=== PATIENT | male | born 1960 | race Caucasian/White ===

== ENCOUNTER → 2017-03-28 | Outpatient (CLI) | payer BC | LOC: RAD 07:53 | PROVIDERS: ATTEND Internal Medicine Gastroenterology | DX: D50.9 Iron deficiency anemia, unspecified (principal) | CPT/HCPCS: 74250 ==

== ENCOUNTER 2017-04-29 19:52 | Emergency (ER) | payer BC ==
--- NOTE | 2017-04-29 20:42 | ER Document Report ---
Doctor's Note Notes: 04/29/17 20:41 pt. with inability to urinate for the past 8-9 hrs. This has not happened before to him.
[2017-04-29 21:53] LABS: APPEARANCE,URINE CLEAR; BILIRUBIN,URINE NEGATIVE (NEGATIVE); GLUCOSE, URINE NEGATIVE (NEGATIVE); KETONES,URINE NEGATIVE (NEGATIVE); LEUKOCYTE ESTERASE,URINE NEGATIVE (NEGATIVE); NITRITE,URINE NEGATIVE (NEGATIVE); PROTEIN,URINE NEGATIVE (NEGATIVE); URINE SPECIFIC GRAVITY 1.008; UROBILINOGEN,URINE NEGATIVE mg/dL (<2.0)
--- NOTE | 2017-04-29 22:11 | ER Document Report ---
ED General - General Chief Complaint: Urinary Problem Stated Complaint: URINARY PROBLEM Time Seen by Provider: 04/29/17 20:39 Mode of Arrival: Ambulatory Information source: Patient, Relative Notes: 57-year-old male history of enlarged prostate who was on Flomax daily presents with complaints of difficulty urinating. Patient notes that he stopped his Flomax 3 days ago, they was having difficulty urinating. he has not urinated since noon TRAVEL OUTSIDE OF THE [place] IN LAST 30 DAYS: No - HPI Onset: This afternoon Onset/Duration: Sudden Quality of pain: Pressure Severity: Moderate Pain Level: 2 Associated symptoms: Other Exacerbated by: Denies Relieved by: Denies Similar symptoms previously: No Recently seen / treated by doctor: No - Related Data Allergies/Adverse Reactions: No Known Drug Allergies Allergy (Mild, Verified 10/24/13 08:31) Past Medical History - Social History Smoking Status: Former Smoker Cigarette use (# per day): No Chew tobacco use (# tins/day): No Smoking Education Provided: No Family History: Reviewed & Not Pertinent Patient has suicidal ideation: No Patient has homicidal ideation: No Pulmonary Medical History: Reports: Hx COPD Renal/ Medical History: Denies: Hx Peritoneal Dialysis - Immunizations Hx Diphtheria, Pertussis, Tetanus Vaccination: No Review of Systems - Review of Systems Notes: REVIEW OF SYSTEMS: CONSTITUTIONAL : Denies fever, chills, or sweats. Denies recent illness. EENT: Denies eye, ear, throat, or mouth pain or symptoms. Denies nasal or sinus congestion or discharge. Denies throat, tongue, or mouth swelling or difficulty swallowing. CARDIOVASCULAR: Denies chest pain. Denies palpitations or racing or irregular heart beat. Denies ankle edema. RESPIRATORY: Denies cough, cold, or chest congestion. Denies shortness of breath, difficulty breathing, or wheezing. GASTROINTESTINAL: Denies abdominal pain or distention. Denies nausea, vomiting , or diarrhea. Denies blood in vomitus, stools, or per rectum. Denies black, tarry stools. Denies constipation. GENITOURINARY: Admits to difficulty urinating MUSCULOSKELETAL: Denies back or neck pain or stiffness. Denies joint pain or swelling. SKIN: Denies rash, lesions or sores. HEMATOLOGIC : Denies easy bruising or bleeding. LYMPHATIC: Denies swollen, enlarged glands. NEUROLOGICAL: Denies confusion or altered mental status. Denies passing out or loss of consciousness. Denies dizziness or lightheadedness. Denies headache. Denies weakness or paralysis or loss of use of either side. Denies problems with gait or speech. Denies sensory loss, numbness, or tingling. Denies seizures. PSYCHIATRIC: Denies anxiety or stress. Denies depression, suicidal ideation, or homicidal ideation. ALL OTHER SYSTEMS REVIEWED AND NEGATIVE. Dictation was performed using [employer] voice recognition software PHYSICAL EXAMINATION: GENERAL: Well-appearing, well-nourished and in no acute distress. HEAD: Atraumatic, normocephalic. EYES: Pupils equal round extraocular movements intact, conjunctiva are normal. ENT: Nares patent NECK: Normal range of motion LUNGS: No respiratory distress Musculoskeletal: Normal range of motion foly in place NEUROLOGICAL: Normal speech, normal gait. PSYCH: Normal mood, normal affect. SKIN: Warm, Dry, normal turgor, no rashes or lesions noted. Physical Exam - Vital signs Vitals: Temp Pulse Resp BP Pulse Ox 98.2 F 83 17 128/77 H 96 04/29/17 20:37 04/29/17 20:37 04/29/17 20:37 04/29/17 20:37 04/29/17 20:37 Course - Re-evaluation Re-evalutation: 04/29/17 22:09 Urinalysis noted no acute abnormality, once Day was placed patient had complete resolution of symptoms. Patient has been instructed to return to using his Flomax, he will be given urology follow-up and will have Day bag in place. Very strict return precautions explained to the patient After performing a Medical Screening Examination, I estimate there is LOW risk for ACUTE APPENDICITIS, BOWEL OBSTRUCTION, ACUTE CHOLECYSTITIS, PERFORATED DIVERTICULITIS, INCARCERATED HERNIA, PANCREATITIS, or PERFORATED ULCER, thus I consider the discharge disposition reasonable. Also, there is no evidence or peritonitis, sepsis, or toxicity. I have reevaluated this patient multiple times and no significant life threatening changes are noted. The patient and I have discussed the diagnosis and risks, and we agree with discharging home with close follow-up with the understanding that symptoms and presentations can change. We also discussed returning to the Emergency Department immediately if new or worsening symptoms occur. We have discussed the symptoms which are most concerning (e.g., bloody stool, fever, changing or worsening pain, intractable vomiting - standard verbal up date) that necessitate immediate return. - Vital Signs Vital signs: Temp Pulse Resp BP Pulse Ox 98.2 F 83 17 128/77 H 96 04/29/17 20:37 04/29/17 20:37 04/29/17 20:37 04/29/17 20:37 04/29/17 20:37 Discharge - Discharge Clinical Impression: Urinary retention Benign prostate hyperplasia Qualifiers: Lower urinary tract symptom presence: symptoms present Lower urinary tract symptom detail: urinary retention Qualified Code(s): N40.1 - Benign prostatic hyperplasia with lower urinary tract symptoms; R33.8 - Other retention of urine Condition: Stable Disposition: HOME, SELF-CARE Instructions: Urinary Retention ([facility]) Referrals: REBEKAH ROCHE MD [ACTIVE STAFF] - Follow up tomorrow
[2017-04-29 22:25] VITALS: BP 131/75
== END 2017-04-29 22:23 | disposition home or self-care (01) ==
LOC: ER 19:52
DX: N40.1 Benign prostatic hyperplasia with lower urinary tract symptoms (principal); R33.8 Other retention of urine; J44.9 Chronic obstructive pulmonary disease, unspecified; Z87.891 Personal history of nicotine dependence
CPT/HCPCS: 51702; 81001; 99283

== ENCOUNTER 2017-05-31 11:30 | Day surgery (SDC) | payer BC ==
[2017-05-26 11:20] LABS: HEMATOCRIT 47.6 % (37.9-51.0); HEMOGLOBIN 14.8 g/dL (13.5-17.0); HGB HCT DIFFERENCE -3.2; MEAN CORPUSCULAR HEMOGLOBIN 23.6 pg (27.0-33.4); MEAN CORPUSCULAR HGB CONC 31.2 g/dL (32.0-36.0); MEAN CORPUSCULAR VOLUME 76 fl (80-97); RED BLOOD COUNT 6.29 10^6/uL (4.35-5.55); RED CELL DISTRIBUTION WIDTH 19.6 % (11.5-14.0); WHITE BLOOD COUNT 6.4 10^3/uL (4.0-10.5)
[2017-05-26 11:48] LABS: ANION GAP 12 (5-19); BLOOD UREA NITROGEN 14 mg/dL (7-20); CALCIUM 9.3 mg/dL (8.4-10.2); CARBON DIOXIDE 31 mmol/L (22-30); CHLORIDE 99 mmol/L (98-107); CREATININE RESULT 1.09 mg/dL (0.52-1.25); GLUCOSE 77 mg/dL (75-110); SODIUM 141.8 mmol/L (137-145)
--- NOTE | 2017-05-26 20:41 | EKG REPORT ---
SEVERITY:- NORMAL ECG - SINUS RHYTHM : Confirmed by: Juan José Cervantes 26-May-2017 20:41:30
[~2017-05-31 11:30] MED LIST: CEFAZOLIN 1 GM/D5W RTU 1 GM/50 ML RTUPB IV PRN; DEXAMETHASONE SOD PHOSPHATE INJ 4 MG/1 ML VIAL ONE; LACTATED RINGERS 1000 ML IV PRN; LIDOCAINE 2% INJ-PF (20 MG/ML) 10 ML AMPUL ONE; ONDANSETRON HCL INJ/PF 4 MG/2 ML SDV ONE
[2017-05-31] MEDS ORDERED: FENTANYL CITRATE INJ/PF 100 MCG/2 ML AMPUL ONE (13:50)
[2017-05-31] MEDS ORDERED: ACETAMINOPHEN 100 ML IV ONE (13:51)
[2017-05-31] MEDS ORDERED: PROPOFOL INJ 200 MG/20 ML VIAL IV ONE (13:51)
[2017-05-31] MEDS ORDERED: MIDAZOLAM 2 MG/2 ML INJ ONE (13:51)
[2017-05-31] MEDS ORDERED: KETAMINE HCL INJ 500 MG/10 ML VIAL ONE (14:09)
[2017-05-31] MEDS ORDERED: MORPHINE SULFATE 10 MG/ML INJ IV PRN (15:01)
[2017-05-31] MEDS ORDERED: FENTANYL CITRATE INJ/PF 100 MCG/2 ML AMPUL IV PRN ×3 (15:01)
[2017-05-31] MEDS ORDERED: MEPERIDINE HCL/PF INJ 25 MG/1 ML DISP.SYRIN IV PRN (15:01)
[2017-05-31] MEDS ORDERED: DIPHENHYDRAMINE HCL 50 MG/ML VIAL IV PRN (15:01)
[2017-05-31] MEDS ORDERED: PROMETHAZINE HCL INJ 25 MG/1 ML VIAL IV PRN ×2 (15:01)
--- NOTE | 2017-05-31 15:04 | RADIOLOGY REPORT (SQ) ---
EXAM DESCRIPTION: PYELOGRAM RETROGRADE COMPLETED DATE/TIME: 05/31/2017 2:52 pm REASON FOR STUDY: RETROGRADE BLADDER TUMOR D49.4 NEOPLASM OF UNSPECIFIED BEHAVIOR OF BLADDER COMPARISON: None. FLUOROSCOPY TIME: Total fluoroscopy time was 0.6 minutes. Cine images saved to PACS. TECHNIQUE: Intra-operative images acquired during surgical procedure to evaluate progress. NUMBER OF IMAGES: 1 LIMITATIONS: None. FINDINGS: Fluoroscopy was provided for retrograde pyelogram. Limited cine images reveal no filling defects or significant hydronephrosis. Please refer to the operative report for complete discussion. IMPRESSION: IMAGE(S) OBTAINED DURING PROCEDURE. COMMENT: Quality ID [id number]: Final reports for procedures using fluoroscopy that document radiation exp osure indices, or exposure time and number of fluorographic images (if radiation exposure indices are not available) Please consult full operative report of the attending physician for description of the procedure. TECHNICAL DOCUMENTATION: JOB ID: [id number] [employer]- All Rights Reserved
--- NOTE | 2017-05-31 15:51 | OPERATIVE REPORT E ---
Operative Report NAME: TRAY WILLIS : 1960 AGE: 57Y DATE OF SURGERY: 05/31/2017 ROOM: PREOPERATIVE DIAGNOSIS: BLADDER LESIONS (3 MM AND 2 MM ON RIGHT HEMITRIGONE, 2 MM POSTERIOR WALL, 3 MM LEFT DOME, 2 MM RIGHT DOME) OF THE BLADDER. POSTOPERATIVE DIAGNOSIS: BLADDER LESIONS (3 MM AND 2 MM ON RIGHT HEMITRIGONE, 2 MM POSTERIOR WALL, 3 MM LEFT DOME, 2 MM RIGHT DOME) OF THE BLADDER. OPERATION: 1. Cystoscopy. 2. Bladder biopsies with fulguration. 3. Bilateral retrogrades. SURGEON: JESSENIA BURCH M.D. ANESTHESIA: MAC. MANAGER ORACLE: None. SPECIMENS: Bladder tissue. BLEEDING: Minimal. COMPLICATIONS: None. INDICATIONS: The patient is a 57-year-old gentleman who had difficulty urinating. He had an indwelling Day catheter. He was cystoscoped in the office to evaluate his bladder outlet and degree of trabeculation. I found a suspicious papillary change on his right hemitrigone which prompted the recommend for bladder biopsy with fulguration. These are not areas that would normally be affected by an indwelling catheter. Furthermore, there were discrete changes in the bladder, not a suction type effect seen with Day catheter. OPERATION: After the patient was identified in the preoperative holding area, he was taken to the operating room. A time-out was performed where the correct patient and procedure were confirmed. He was then given sedation and was carefully positioned in the dorsal lithotomy position. He was prepped and draped in a routine sterile manner. A #23 sheath and panendoscope was used to examine the urethra and prostatic urethra. The bladder was carefully examined. There were no stones noted. He did have papillary-appearing areas on the right hemitrigone that were superficial and adjacent to the ureteral orifice. There were some smaller areas noted as mentioned above on the posterior bladder wall and on the right and lateral dome of the bladder. Each of these was biopsied with a cold cup biopsy forceps and the base and periphery of the area was then cauterized with electrocautery. Hemostasis was present. BILATERAL RETROGRADES: A 5-Slovak open-tip catheter was positioned at the right ureteral orifice. A total of 5 mL of Omnipaque was used to fill the right ureter and upper collecting system. There was no evidence of filling defect or obstruction. Impression is normal right retrograde. An open-ended catheter was positioned at the distal left ureteral orifice and a total of 5 mL was used to fill the left ureter and upper collecting system. There were no filling defects or evidence of obstruction. Impression is normal left retrograde. The patient was returned to the recovery room having tolerated this procedure well. DICTATING PHYSICIAN: JESSENIA BURCH M.D. [id number] PHY#: [id number] ID: [id number] JOB#: [id number] ACCT: [id number] cc:JESSENIA BURCH M.D. >
[2017-05-31] MEDS ORDERED: ONDANSETRON 4 MG TAB.RAPDIS ONE (16:18)
[2017-05-31 16:24] VITALS: BP 155/88
--- NOTE | 2017-06-15 08:38 | DISCHARGE SUMMARY E ---
Discharge Summary NAME: TRAY WILLIS : 1960 AGE: 57Y ADMITTED: 05/31/2017 DISCHARGED: 05/31/2017 DATE OF PROCEDURE: 05/31/2017 FINAL DIAGNOSIS: Bladder lesions. CONDITION: Good. TREATMENT: Cystoscopy with bladder biopsy and fulguration and bilateral retrogrades. PRESCRIPTIONS: 1. Ciprofloxacin 500 mg twice daily x3 days. 2. He was also instructed to resume preadmission medications. REFERRALS: He will follow up in our office in 1 week to discuss his pathology report. DISCHARGE DIET: As tolerated. RESPIRATORY TREATMENTS AT HOME: Deep breathing and coughing. DISCHARGE ACTIVITY: Activity as tolerated and gradually increase activity. HOME ASSISTANCE: None needed. Report the following to your physician immediately: Shortness of breath, fever over 101, unusual bleeding. VTE PROPHYLAXIS: None. Not indicated due to increased risk for bleeding. HOSPITAL COURSE: The patient is a 57-year-old gentleman who had outpatient cystoscopy with bladder biopsy and bilateral retrogrades. He had an uncomplicated surgical procedure and recovery in the postanesthesia care unit. He was discharged for further followup as an outpatient. DICTATING PHYSICIAN: JESSENIA BURCH M.D. [id number] PHY#: [id number] ID: [id number] JOB#: [id number] ACCT: [id number] cc:JESSENIA BURCH M.D. > MTDD
== END 2017-05-31 16:35 | disposition home or self-care (01) ==
LOC: OROUT 11:30
PROVIDERS: ATTEND Urology
PROC: 0TBB8ZX Excision of Bladder, Via Natural or Artificial Opening Endoscopic, Diagnostic (ICD-10-PCS; 2017-05-31)
PROC: 0T5B8ZZ Destruction of Bladder, Via Natural or Artificial Opening Endoscopic (ICD-10-PCS; principal; 2017-05-31 13:30)
DX: C67.0 Malignant neoplasm of trigone of bladder (principal); N40.1 Benign prostatic hyperplasia with lower urinary tract symptoms; I10 Essential (primary) hypertension; K21.9 Gastro-esophageal reflux disease without esophagitis; J44.9 Chronic obstructive pulmonary disease, unspecified; M19.90 Unspecified osteoarthritis, unspecified site; G47.30 Sleep apnea, unspecified; R33.9 Retention of urine, unspecified; Z86.73 Personal history of transient ischemic attack (TIA), and cerebral infarction without residual deficits; Z87.891 Personal history of nicotine dependence; Z79.899 Other long term (current) drug therapy; Z79.51 Long term (current) use of inhaled steroids
CPT/HCPCS: 52214; 93005; 36415 ×2; 84132; 85027; 80048; 88305 ×2; 74420; 93010; C1758; Q9967; J2250; J0690; J1100; S0119; J3010; J3490 ×2; J2405; J2704; J0131; 910

== ENCOUNTER → 2017-06-06 | Outpatient (CLI) | payer BC ==
[~2017-06-06] MED LIST changes: +ALBUTEROL SULFATE 0.083% NEB 2.5 MG/3 ML AMPUL NEB ONE; -CEFAZOLIN 1 GM/D5W RTU 1 GM/50 ML RTUPB IV PRN; -DEXAMETHASONE SOD PHOSPHATE INJ 4 MG/1 ML VIAL ONE; -LACTATED RINGERS 1000 ML IV PRN; -LIDOCAINE 2% INJ-PF (20 MG/ML) 10 ML AMPUL ONE; -ONDANSETRON HCL INJ/PF 4 MG/2 ML SDV ONE
--- NOTE | 2017-06-08 11:17 | PULMONARY FUNCTION TEST ---
DATE OF SERVICE: 06/06/2017 THE VITAL CAPACITY IS SLIGHTLY DECREASED. THE EXPIRATORY FLOW RATES ARE SEVERELY DECREASED. THE FEV1/VC IS 39%, PREDICTED: 79% LUNG VOLUMES BY NITROGEN WASH OUT METHOD SHOW: TLC IS 97% OF PREDICTED FRC IS 102% OF PREDICTED RV IS 108% OF PREDICTED THE DLCO IS 20.2, 69% OF PREDICTED. THE RV/TLC RATIO IS 37% PREDICTED 36% AFTER BRONCHODILATOR, EXPIRATORY FLOW RATES SHOW SIGNIFICANT IMPROVEMENT. IMPRESSION: GOOD PATIENT EFFORT. SEVERE OBSTRUCTIVE DEFECT WITH IMPROVEMENT IN EXPIRATORY FLOW RATES AFTER BRONCHODILATOR. LUNG VOLUMES ARE NORMAL. DIFFUSING CAPACITY IS MODERATELY DECREASED. CC: MAGALIE ZAPATA MD > ALANNAD
== END ==
LOC: RT 10:12
PROVIDERS: ATTEND Internal Medicine Pulmonary Disease
DX: J44.1 Chronic obstructive pulmonary disease with (acute) exacerbation (principal); I10 Essential (primary) hypertension
CPT/HCPCS: 94060; 94727; 94729

== ENCOUNTER 2019-04-21 15:54 | Observation (INO) | payer BC, MEDICAID ==
--- NOTE | 2019-04-21 16:22 | EKG REPORT ---
SEVERITY:- NORMAL ECG - SINUS RHYTHM : Confirmed by: Juan José Cervantes 21-Apr-2019 16:20:52
[2019-04-21] MEDS ORDERED: ASPIRIN 81 MG TABLET, CHEWABLE PO ONE (17:41)
--- NOTE | 2019-04-21 18:20 | RADIOLOGY REPORT (SQ) ---
EXAM DESCRIPTION: CHEST SINGLE VIEW COMPLETED DATE/TIME: 04/21/2019 6:07 pm REASON FOR STUDY: CHEST PAIN COMPARISON: 10/24/2013 EXAM PARAMETERS: NUMBER OF VIEWS: One view. TECHNIQUE: Single frontal radiographic view of the chest acquired. RADIATION DOSE: NA LIMITATIONS: None. FINDINGS: LUNGS AND PLEURA: Somewhat nodular and bandlike opacity of the right upper lobe. MEDIASTINUM AND HILAR STRUCTURES: No masses. Contour normal. HEART AND VASCULAR STRUCTURES: Heart normal in size. Normal vasculature. BONES: No acute findings. HARDWARE: None in the chest. OTHER: No other significant finding. IMPRESSION: Somewhat nodular and bandlike opacity of the right upper lobe. There is no acute focal airspace opacity. Recommend nonemergent CT to further evaluate opacity. TECHNICAL DOCUMENTATION: JOB ID: [id number] [employer]- All Rights Reserved Reading location - IP/workstation name: [email or web address]
[2019-04-21 18:23] LABS: ABSOLUTE LYMPHOCYTES (AUTO) 1.6 10^3/uL (0.5-4.7); ABSOLUTE NEUT (AUTO) 11.3 10^3/uL (1.7-8.2); BASOPHILS % (AUTO) 0.2 % (0-2); EOSINOPHILS % (AUTO) 0.3 % (0-6); HEMATOCRIT 37.6 % (37.9-51.0); HEMOGLOBIN 11.7 g/dL (13.5-17.0); LYMPHOCYTES % (AUTO) 11.7 % (13-45); MEAN CORPUSCULAR HEMOGLOBIN 23.2 pg (27.0-33.4); MEAN CORPUSCULAR HGB CONC 31.1 g/dL (32.0-36.0); MEAN CORPUSCULAR VOLUME 75 fl (80-97); PLATELET COUNT 218 10^3/uL (150-450); RED BLOOD COUNT 5.04 10^6/uL (4.35-5.55); RED CELL DISTRIBUTION WIDTH 16.9 % (11.5-14.0); SEGMENTED NEUTROPHILS % (AUTO) 80.8 % (42-78); TOTAL CELLS COUNTED % (AUTO) 100 %
[2019-04-21 18:39] LABS: ALANINE AMINOTRANSFERASE 30 U/L (21-72); ALKALINE PHOSPHATASE 54 U/L (38-126); ANION GAP 12 (5-19); ASPARTATE AMINO TRANSFERASE 21 U/L (17-59); BILIRUBIN,DIRECT 0.3 mg/dL (0.0-0.4); BILIRUBIN,TOTAL 0.8 mg/dL (0.2-1.3); BLOOD UREA NITROGEN 17 mg/dL (7-20); CALCIUM 9.1 mg/dL (8.4-10.2); CARBON DIOXIDE 27 mmol/L (22-30); CHLORIDE 102 mmol/L (98-107); CREATINE KINASE 129 U/L (55-170); GLUCOSE 133 mg/dL (75-110); POTASSIUM 4.2 mmol/L (3.6-5.0); SODIUM 140.7 mmol/L (137-145); TOTAL PROTEIN 6.7 g/dL (6.3-8.2)
[2019-04-21 18:51] LABS: CREATINE KINASE MB 1.91 ng/mL (<4.55)
[2019-04-21 18:52] LABS: TROPONIN I 0.091 ng/mL
--- NOTE | 2019-04-21 19:59 | ER Document Report ---
ED General - General Chief Complaint: Chest Pain Stated Complaint: CHEST PAIN Time Seen by Provider: 04/21/19 18:29 Primary Care Provider: RASHEL COLINDRES MD [Primary Care Provider] - Follow up as needed Notes: Patient is a 59-year-old male with past medical history of COPD, no longer a smoker, hypertension, presents with complaints of intermittent chest pain and shortness of breath for the past 3 weeks. Patient relates that his pain seems to be exertional in nature. He relates an episode yesterday when he was walking in the mall for exercise. States that he became diaphoretic, developed pain in his left chest radiating down his left arm became somewhat short of breath. States that the pain went away upon sitting down. He states that when he got back up to walk out to his car his pain recurred. His relates that this is been ongoing for the past several weeks and seems to be worsening in its intensity. The patient states that when the pain is present it is a throbbing, aching, constant discomfort in the left chest. Not worsened by anything other than exertion, relieved by rest. He denies any history of similar symptoms prior to the past 3 weeks. Denies any pleuritic pain. No history of DVT or pulmonary embolus. No recent prolonged periods of stasis. No use of estrogen. No use of chemotherapy. He has not seen his primary care physician regarding today's concerns. He has no history of coronary artery disease. He denies any symptoms at the time of my assessment. TRAVEL OUTSIDE OF THE [place] IN LAST 30 DAYS: No - Related Data Allergies/Adverse Reactions: No Known Drug Allergies Allergy (Mild, Verified 04/21/19 15:54) Past Medical History - General Information source: Patient - Social History Smoking Status: Former Smoker Frequency of alcohol use: None Drug Abuse: None Lives with: Spouse/Significant other Family History: Reviewed & Not Pertinent Patient has suicidal ideation: No Patient has homicidal ideation: No - Past Medical History Cardiac Medical History: Reports: Hx Hypertension Denies: Hx Coronary Artery Disease, Hx Heart Attack Pulmonary Medical History: Reports: Hx COPD - NO CPAP; BUT WEARS O2 AT BEDTIME Denies: Hx Asthma, Hx Bronchitis, Hx Pneumonia Neurological Medical History: Denies: Hx Cerebrovascular Accident, Hx Seizures Renal/ Medical History: Denies: Hx Peritoneal Dialysis Musculoskeletal Medical History: Denies Hx Arthritis - Immunizations Hx Diphtheria, Pertussis, Tetanus Vaccination: Yes Review of Systems - Review of Systems Notes: Constitutional: Negative for fever. HENT: Negative for sore throat. Eyes: Negative for visual changes. Cardiovascular: Positive for chest pain. Respiratory: Positive for shortness of breath. Gastrointestinal: Negative for abdominal pain, vomiting or diarrhea. Genitourinary: Negative for dysuria. Musculoskeletal: Negative for back pain. Skin: Negative for rash. Neurological: Negative for headaches, weakness or numbness. 10 point ROS negative except as marked above and in HPI. Physical Exam - Vital signs Vitals: Temp Pulse Resp BP Pulse Ox 98.3 F 86 24 H 102/81 96 04/21/19 15:55 04/21/19 15:55 04/21/19 15:55 04/21/19 15:55 04/21/19 15:55 Interpretation: Normal Notes: PHYSICAL EXAMINATION: GENERAL: Well-appearing, well-nourished and in no acute distress. HEAD: Atraumatic, normocephalic. EYES: Pupils equal round and reactive to light, extraocular movements intact, sclera anicteric, conjunctiva are normal. ENT: nares patent, oropharynx clear without exudates. Moist mucous membranes. NECK: Normal range of motion, supple without lymphadenopathy LUNGS: Breath sounds clear to auscultation bilaterally and equal. No wheezes rales or rhonchi. HEART: Regular rate and rhythm without murmurs ABDOMEN: Soft, nontender, normoactive bowel sounds. No guarding, no rebound. No masses appreciated. EXTREMITIES: Normal range of motion, no pitting or edema. No cyanosis. NEUROLOGICAL: No focal neurological deficits. Moves all extremities spontaneously and on command. PSYCH: Normal mood, normal affect. SKIN: Warm, Dry, normal turgor, no rashes or lesions noted. Course - Re-evaluation Re-evalutation: 04/21/19 19:57 Patient presents with complaints of exertional chest pain or shortness of breath very worrisome for anginal episodes. EKG without ischemic changes. Initial troponin is elevated at 0.091. The patient's heart score is 6. He will require hospitalization for stress testing. He has already received aspirin. His chest x-ray is without acute findings, will need to follow-up regarding incidental finding on x-ray. History not consistent with pulmonary embolus or dissection. Patient is in agreement with hospitalization. I have discussed with Dr. Ramírez who has requested a repeat troponin prior to acceptance. 04/21/19 22:51 Repeat troponin is somewhat elevated to 0.112 although the patient remains chest pain-free. I had multiple conversations with Dr. Capone and the patient. We are able to cardiac cath this patient on Monday with the availability of stent placement with Dr. Moreau. This has been verified with the nursing supervisor paint department venous. I discussed with the patient that he will not be able to catheterize him until Monday. The patient is in agreement with remaining here at [facility] for catheterization on Monday. I have provided him Lovenox, Plavix, aspirin, atorvastatin. I have discussed with Dr. Ramírez who is accepted the patient. - Vital Signs Vital signs: Temp Pulse Resp BP Pulse Ox 98.3 F 86 24 H 102/81 96 04/21/19 15:55 04/21/19 15:55 04/21/19 15:55 04/21/19 15:55 04/21/19 18:25 - Laboratory Result Diagrams: 04/21/19 17:58 04/21/19 17:58 Laboratory results interpreted by me: 04/21/19 04/21/19 17:58 17:58 WBC 14.0 H Hgb 11.7 L Hct 37.6 L MCV 75 L MCH 23.2 L MCHC 31.1 L RDW 16.9 H Seg Neutrophils % 80.8 H Lymphocytes % 11.7 L Absolute Neutrophils 11.3 H Glucose 133 H - Diagnostic Test Radiology reviewed: Image reviewed, Reports reviewed Radiology results interpreted by me: 04/21/19 19:57 Chest x-ray: No acute infiltrate or pneumothorax - EKG Interpretation by Me Additional EKG results interpreted by ut: 04/21/19 19:57 Sinus rhythm, rate 76. No ST elevations or depressions. QTC is 432. Discharge - Discharge Clinical Impression: Exertional chest pain, Elevated troponin Condition: Fair Disposition: ADMITTED INPATIENT Admitting Provider: Darrell (Hospitalist) Unit Admitted: Telemetry Referrals: RASHEL COLINDRES MD [Primary Care Provider] - Follow up as needed
[2019-04-21] MEDS ORDERED: ATORVASTATIN CALCIUM 80 MG TABLET PO ONE (22:35)
[2019-04-21] MEDS ORDERED: CLOPIDOGREL BISULFATE 300 MG TABLET PO ONE (22:35)
[2019-04-21] MEDS ORDERED: NITROGLYCERIN 0.4 MG/TAB 25 TAB/BOTTLE SL PRN (22:52)
[2019-04-21] MEDS ORDERED: LEVALBUTEROL HCL NEB 1.25 MG/3 ML AMPUL NEB PRN (22:56)
[2019-04-21 23:13] LABS: INTERNATIONAL RATION (INR) 1.02; PROTHROMBIN TIME 13.9 SEC (11.4-15.4)
[2019-04-21 23:14] LABS: PARTIAL THROMBOPLASTIN TIME 38.9 SEC (23.5-35.8)
[2019-04-21] MEDS: ENOXAPARIN SODIUM INJ 120 MG/0.8 ML DISP.SYRIN SUBCUT SCH (23:23)
[2019-04-22] MEDS: LEVALBUTEROL HCL NEB 1.25 MG/3 ML AMPUL NEB SCH ×3 (00:30→15:45)
[2019-04-22] MEDS: PREGABALIN 75 MG CAPSULE PO SCH ×4 (01:13→17:09)
--- NOTE | 2019-04-22 05:29 | PDOC H&P ---
History of Present Illness Admission Date/PCP: 04/21/19 22:52 RASHEL COLINDRES MD Patient complains of: Chest pain History of Present Illness: TRAY WILLIS is a 59 year old male with a past medical history of COPD, sleep apnea, epistasis and hypertension. Patient presents with several weeks of excessive shortness of breath with exertion with acute worsening at today in association with walking for exercise. He describes his pain is dull and radiating to the left shoulder retrosternal associate with nausea without vomiting, diaphoresis, no palpitations prompting evaluation in the emergency room after approximately 35 minutes of pain that was somewhat relieved by rest. He admits several episodes of the last 3 weeks but short-lived he also had an episode of severe acid reflux which interfered with sleep. He denies any medications and is otherwise been well. In the emergency department he is found to have an abnormal EKG with lateral lead ST upsloping and a troponin of 0.09 followed by 0.1 after 3 hours. However he is pain-free and referred to the hospitalist for admission. Past Medical History Cardiac Medical History: Reports: Hypertension Denies: Coronary Artery Disease, Myocardial Infarction Pulmonary Medical History: Reports: Chronic Obstructive Pulmonary Disease (COPD) - NO CPAP; BUT WEARS O2 AT BEDTIME Denies: Asthma, Bronchitis, Pneumonia Neurological Medical History: Denies: Seizures Musculoskeltal Medical History: Denies: Arthritis Psychiatric Medical History: Denies: Depression Hematology: Reports: Anemia Past Surgical History Past Surgical History: Reports: None Social History Information Source: Patient, [facility] Records Lives with: Spouse/Significant other Smoking Status: Former Smoker Cigarettes Packs Per Day: 2.5 Number of Years Smokin Last Time Smoked: 2003 Frequency of Alcohol Use: None Hx Recreational Drug Use: Yes - marijuana; as teen: pcp, plastadil, cocaine Drugs: None Hx Prescription Drug Abuse: No - Advance Directive Resuscitation Status: Full Code Family History Family History: CAD Parental Family History Reviewed: Yes Children Family History Reviewed: Yes Sibling(s) Family History Reviewed.: Yes Medication/Allergy Home Medications: Baclofen [Baclofen 10 mg Tablet] 1 tab PO ASDIR 05/26/17 Furosemide [Lasix 20 mg Tablet] 1 tab PO DAILY 05/26/17 Losartan Potassium 1 tab PO DAILY 05/26/17 Pantoprazole Sodium 1 tab PO BID 05/26/17 Tamsulosin HCl 1 tab PO BID 05/26/17 Tizanidine HCl 2 tab PO QHS 05/26/17 Tramadol HCl 1 tab PO TID 05/26/17 Fluticasone/Umeclidin/Vilanter [Trelegy 100-62.5-25 Mcg Ellipta 14 Dose/Dpi] 1 puff IH DAILY 04/21/19 Meloxicam [Mobic] 15 mg PO DAILY 04/21/19 Pregabalin [Lyrica] 150 mg PO TID 04/21/19 Allergies/Adverse Reactions: No Known Drug Allergies Allergy (Mild, Verified 04/21/19 15:54) Review of Systems Constitutional: ABSENT: chills, fever(s), headache(s), weight gain, weight loss Eyes: ABSENT: visual disturbances Ears: ABSENT: hearing changes Cardiovascular: ABSENT: chest pain, dyspnea on exertion, edema, orthropnea, pal pitations Respiratory: ABSENT: cough, hemoptysis Gastrointestinal: ABSENT: abdominal pain, constipation, diarrhea, hematemesis, hematochezia, nausea, vomiting Genitourinary: ABSENT: dysuria, hematuria Musculoskeletal: ABSENT: joint swelling Integumentary: ABSENT: rash, wounds Neurological: ABSENT: abnormal gait, abnormal speech, confusion, dizziness, focal weakness, syncope Psychiatric: ABSENT: anxiety, depression, homidical ideation, suicidal ideation Endocrine: ABSENT: cold intolerance, heat intolerance, polydipsia, polyuria Hematologic/Lymphatic: ABSENT: easy bleeding, easy bruising Physical Exam Vital Signs: Temp Pulse Resp BP Pulse Ox 98.2 F 69 20 112/50 L 91 L 04/22/19 03:41 04/22/19 03:41 04/22/19 03:41 04/22/19 03:41 04/22/19 03:41 Intake & Output 04/20/19 04/21/19 04/22/19 11:59 11:59 11:59 Weight 108.8 kg General appearance: PRESENT: no acute distress, well-developed, well-nourished Head exam: PRESENT: atraumatic, normocephalic Eye exam: PRESENT: conjunctiva pink, EOMI, PERRLA. ABSENT: scleral icterus Ear exam: PRESENT: normal external ear exam Mouth exam: PRESENT: moist, tongue midline Neck exam: ABSENT: carotid bruit, JVD, lymphadenopathy, thyromegaly Respiratory exam: PRESENT: clear to auscultation marjan. ABSENT: rales, rhonchi, wheezes Cardiovascular exam: PRESENT: RRR. ABSENT: diastolic murmur, rubs, systolic murmur Pulses: PRESENT: normal dorsalis pedis pul Vascular exam: PRESENT: normal capillary refill GI/Abdominal exam: PRESENT: normal bowel sounds, soft. ABSENT: distended, guarding, mass, organolmegaly, rebound, tenderness Rectal exam: PRESENT: deferred Extremities exam: PRESENT: full ROM. ABSENT: calf tenderness, clubbing, pedal edema Neurological exam: PRESENT: alert, awake, oriented to person, oriented to place, oriented to time, oriented to situation, CN II-XII grossly intact. ABSENT: motor sensory deficit Psychiatric exam: PRESENT: appropriate affect, normal mood. ABSENT: homicidal ideation, suicidal ideation Skin exam: PRESENT: dry, intact, warm. ABSENT: cyanosis, rash Results Laboratory Results: 04/21/19 17:58 04/21/19 17:58 04/21/19 04/21/19 17:58 17:58 WBC 14.0 H RBC 5.04 Hgb 11.7 L Hct 37.6 L MCV 75 L MCH 23.2 L MCHC 31.1 L RDW 16.9 H Plt Count 218 Seg Neutrophils % 80.8 H Lymphocytes % 11.7 L Monocytes % 7.0 Eosinophils % 0.3 Basophils % 0.2 Absolute Neutrophils 11.3 H Absolute Lymphocytes 1.6 Absolute Monocytes 1.0 Absolute Eosinophils 0.0 Absolute Basophils 0.0 Sodium 140.7 Potassium 4.2 Chloride 102 Carbon Dioxide 27 Anion Gap 12 BUN 17 Creatinine 1.20 Est GFR ( Amer) > 60 Est GFR (Non-Af Amer) > 60 Glucose 133 H Calcium 9.1 Total Bilirubin 0.8 AST 21 ALT 30 Alkaline Phosphatase 54 Total Protein 6.7 Albumin 4.0 04/21/19 04/21/19 04/21/19 17:58 17:58 20:05 Creatine Kinase 129 CK-MB (CK-2) 1.91 Troponin I 0.091 0.113 04/21/19 04/21/19 04/22/19 20:05 20:05 02:12 Creatine Kinase 99 CK-MB (CK-2) 1.78 Troponin I 0.092 Impressions: Chest X-Ray 04/21/19 17:41 IMPRESSION: Somewhat nodular and bandlike opacity of the right upper lobe. There is no acute focal airspace opacity. Recommend nonemergent CT to further evaluate opacity. Assessment and Plan - Diagnosis (1) Exertional chest pain Is this a current diagnosis for this admission?: Yes Plan: High risk given history, chest pain care set deployed, Lovenox, Plavix, aspirin, beta-zoey initiated follow-up cardiac enzymes and consideration of stress test versus directly to cardiac catheterization. (2) Obstructive sleep apnea Is this a current diagnosis for this admission?: Yes Plan: CPAP ordered (3) COPD (chronic obstructive pulmonary disease) Is this a current diagnosis for this admission?: Yes Plan: Compensated at baseline, Xopenex scheduled and as needed - Time Time Spent with patient: 35 or more minutes - Inpatient Certification Medical Necessity: Need Close Monitoring Due to Risk of Patient Decompensation
[2019-04-22] MEDS ORDERED: GABAPENTIN 300 MG CAPSULE PO SCH (08:00)
[2019-04-22 08:19] LABS: HEMATOCRIT 34.6 % (37.9-51.0); HEMOGLOBIN 11.2 g/dL (13.5-17.0); MEAN CORPUSCULAR HEMOGLOBIN 23.9 pg (27.0-33.4); MEAN CORPUSCULAR HGB CONC 32.3 g/dL (32.0-36.0); MEAN CORPUSCULAR VOLUME 74 fl (80-97); PLATELET COUNT 210 10^3/uL (150-450); RED BLOOD COUNT 4.68 10^6/uL (4.35-5.55); RED CELL DISTRIBUTION WIDTH 17.2 % (11.5-14.0); WHITE BLOOD COUNT 10.3 10^3/uL (4.0-10.5)
[2019-04-22] MEDS: ENOXAPARIN SODIUM INJ 120 MG/0.8 ML DISP.SYRIN SUBCUT SCH ×2 (09:14→21:26)
[2019-04-22] MEDS: MELOXICAM 15 MG TABLET PO SCH (09:14)
[2019-04-22] MEDS: FUROSEMIDE 20 MG TABLET PO SCH (09:15)
[2019-04-22] MEDS: LOSARTAN POTASSIUM 50 MG TABLET PO SCH (09:15)
[2019-04-22] MEDS: CLOPIDOGREL BISULFATE 75 MG TABLET PO SCH (09:15)
[2019-04-22] MEDS: ASPIRIN 81 MG TABLET, ENT COATED PO SCH (09:15)
[2019-04-22] MEDS: TAMSULOSIN HCL 0.4 MG CAP.SR.24H PO SCH ×2 (09:15→17:09)
[2019-04-22] MEDS: PANTOPRAZOLE SODIUM 40 MG TABLET.DR PO SCH ×2 (09:16→17:09)
[2019-04-22] MEDS ORDERED: BACLOFEN 10 MG TABLET PO SCH (10:00)
[2019-04-22] MEDS ORDERED: TRAMADOL HCL 50 MG TABLET PO SCH (10:00)
[2019-04-22] MEDS ORDERED: LAMOTRIGINE 25 MG TAB.CHEW PO SCH (10:00)
[2019-04-22] MEDS ORDERED: FINASTERIDE 5 MG TABLET PO SCH (10:00)
[2019-04-22 10:57] LABS: APPEARANCE,URINE CLEAR; BILIRUBIN,URINE NEGATIVE (NEGATIVE); COLOR,URINE YELLOW; GLUCOSE, URINE >=500 mg/dL (NEGATIVE); KETONES,URINE NEGATIVE (NEGATIVE); LEUKOCYTE ESTERASE,URINE NEGATIVE (NEGATIVE); NITRITE,URINE NEGATIVE (NEGATIVE); PROTEIN,URINE NEGATIVE (NEGATIVE); URINE SPECIFIC GRAVITY 1.008; UROBILINOGEN,URINE NEGATIVE mg/dL (<2.0)
--- NOTE | 2019-04-22 11:05 | PDOC PROGRESS REPORT ---
Subjective Progress Note for:: 04/22/19 Subjective:: 59 year old male with a past medical history of COPD, sleep apnea, epistasis and hypertension. Patient presents with several weeks of excessive shortness of breath with exertion with acute worsening at today in association with walking for exercise. He describes his pain is dull and radiating to the left shoulder retrosternal associate with nausea without vomiting, diaphoresis, no palpitations prompting evaluation in the emergency room after approximately 35 minutes of pain that was somewhat relieved by rest. He admits several episodes of the last 3 weeks but short-lived he also had an episode of severe acid reflux which interfered with sleep. He denies any medications and is otherwise been well. In the emergency department he is found to have an abnormal EKG with lateral lead ST upsloping and a troponin of 0.09 followed by 0.1 after 3 hours. However he is pain-free and referred to the hospitalist for admission. [id number]-old male with multiple medical problems admitted with chest pain. Chest pain with exercise. His troponin was 0.1 at the time of admission latest troponin is 0.097. Patient denies any chest pains at this moment com fortably in the bed. No acute events since the admission. Reason For Visit: NSTEMI COPD Physical Exam Vital Signs: Temp Pulse Resp BP Pulse Ox 98.2 F 78 16 112/50 L 94 04/22/19 03:41 04/22/19 08:22 04/22/19 08:22 04/22/19 03:41 04/22/19 08:22 Intake & Output 04/21/19 04/22/19 04/23/19 06:59 06:59 06:59 Weight 107.8 kg General appearance: PRESENT: no acute distress Head exam: PRESENT: atraumatic Eye exam: PRESENT: PERRLA Mouth exam: PRESENT: moist, tongue midline Neck exam: ABSENT: carotid bruit, JVD, lymphadenopathy, thyromegaly Respiratory exam: PRESENT: decreased breath sounds Cardiovascular exam: PRESENT: RRR. ABSENT: diastolic murmur, rubs, systolic murmur GI/Abdominal exam: PRESENT: normal bowel sounds, soft. ABSENT: distended, guarding, mass, organolmegaly, rebound, tenderness Rectal exam: PRESENT: deferred Extremities exam: PRESENT: full ROM. ABSENT: calf tenderness, clubbing, pedal edema Neurological exam: PRESENT: alert, awake, oriented to person, oriented to place, oriented to time, oriented to situation, CN II-XII grossly intact. ABSENT: motor sensory deficit Psychiatric exam: PRESENT: appropriate affect, normal mood. ABSENT: homicidal ideation, suicidal ideation Results Laboratory Results: 04/22/19 07:56 04/21/19 17:58 04/21/19 04/21/19 04/22/19 17:58 17:58 07:56 WBC 14.0 H 10.3 RBC 5.04 4.68 Hgb 11.7 L 11.2 L Hct 37.6 L 34.6 L MCV 75 L 74 L MCH 23.2 L 23.9 L MCHC 31.1 L 32.3 RDW 16.9 H 17.2 H Plt Count 218 210 Seg Neutrophils % 80.8 H Lymphocytes % 11.7 L Monocytes % 7.0 Eosinophils % 0.3 Basophils % 0.2 Absolute Neutrophils 11.3 H Absolute Lymphocytes 1.6 Absolute Monocytes 1.0 Absolute Eosinophils 0.0 Absolute Basophils 0.0 Sodium 140.7 Potassium 4.2 Chloride 102 Carbon Dioxide 27 Anion Gap 12 BUN 17 Creatinine 1.20 Est GFR ( Amer) > 60 Est GFR (Non-Af Amer) > 60 Glucose 133 H Calcium 9.1 Total Bilirubin 0.8 AST 21 ALT 30 Alkaline Phosphatase 54 Total Protein 6.7 Albumin 4.0 Urine Color Urine Appearance Urine pH Ur Specific Rogers Urine Protein Urine Glucose (UA) Urine Ketones Urine Blood Urine Nitrite Ur Leukocyte Esterase Urine WBC (Auto) Urine RBC (Auto) 04/22/19 10:35 WBC RBC Hgb Hct MCV MCH MCHC RDW Plt Count Seg Neutrophils % Lymphocytes % Monocytes % Eosinophils % Basophils % Absolute Neutrophils Absolute Lymphocytes Absolute Monocytes Absolute Eosinophils Absolute Basophils Sodium Potassium Chloride Carbon Dioxide Anion Gap BUN Creatinine Est GFR ( Amer) Est GFR (Non-Af Amer) Glucose Calcium Total Bilirubin AST ALT Alkaline Phosphatase Total Protein Albumin Urine Color YELLOW Urine Appearance CLEAR Urine pH 7.0 Ur Specific Rogers 1.008 Urine Protein NEGATIVE Urine Glucose (UA) >=500 H Urine Ketones NEGATIVE Urine Blood NEGATIVE Urine Nitrite NEGATIVE Ur Leukocyte Esterase NEGATIVE Urine WBC (Auto) 0 Urine RBC (Auto) 0 04/21/19 04/21/19 04/21/19 17:58 17:58 20:05 Creatine Kinase 129 CK-MB (CK-2) 1.91 Troponin I 0.091 0.113 04/21/19 04/21/19 04/22/19 20:05 20:05 02:12 Creatine Kinase 99 CK-MB (CK-2) 1.78 Troponin I 0.092 04/22/19 07:56 Creatine Kinase CK-MB (CK-2) Troponin I 0.097 Impressions: Chest X-Ray 04/21/19 17:41 IMPRESSION: Somewhat nodular and bandlike opacity of the right upper lobe. There is no acute focal airspace opacity. Recommend nonemergent CT to further evaluate opacity. Assessment and Plan - Diagnosis (1) Exertional chest pain Is this a current diagnosis for this admission?: Yes Plan: High risk given history, chest pain care set deployed, Lovenox, Plavix, aspirin, beta-zoey initiated follow-up cardiac enzymes and consideration of stress test versus directly to cardiac catheterization. 04/22/2019-patient came to the emergency with complaints of chest pain he has history of COPD and sleep apnea. Initial troponin was 0.1 latest troponin is 0.07. At the time of admission questionable EKG changes. Presently chest pain- free. Is on Lovenox treatment dose, Plavix aspirin and beta-zoey. Cardiology consult was requested. (2) Obstructive sleep apnea Is this a current diagnosis for this admission?: Yes Plan: CPAP ordered [id number]-[id number]-old male with history of obstructive sleep apnea presently on CPAP on as-needed basis. At the time of my examination comfortably in the bed on room air communicating well. (3) COPD (chronic obstructive pulmonary disease) Is this a current diagnosis for this admission?: Yes Plan: Compensated at baseline, Xopenex scheduled and as needed 04/22/2019-patient has history of COPD he has history of smoking for more than 30 years he quit smoking in 2013. He is not on home oxygen. - Time Time Spent with patient: 15-24 minutes Medications reviewed and adjusted accordingly: Yes Anticipated discharge: Home
[2019-04-22] MEDS: FLUTICASONE/UMECLIDIN/VILANTER 100-62.5-25 MCG/DOSE IH SCH (12:32)
--- NOTE | 2019-04-22 14:03 | EKG REPORT ---
SEVERITY:- ABNORMAL ECG - SINUS RHYTHM VENTRICULAR PREMATURE COMPLEX PROBABLE INFERIOR INFARCT, OLD CONSIDER POSTERIOR WALL INVOLVEMENT NS ST DEPESSION ANTERIOR LEADS : Confirmed by: Denise Capone MD 22-Apr-2019 14:02:40
[2019-04-22] MEDS: TRAMADOL HCL 50 MG TABLET PO SCH ×2 (14:34→21:27)
--- NOTE | 2019-04-22 16:52 | PDOC CONSULTATION ---
Consultation-Blank Consultation: CARDIOLOGY CONSULTATION by Dr. Denise Capone. Patient seen at 12 noon on 04/22/2019. 60 minutes spent on this patient more than 50% of time spent in direct patient care. REASON FOR CONSULTATION: Patient with the classical exertional chest pain relieved with rest , with minor EKG changes and borderline elevation of troponin high levels, and with the patient having multiple CAD risk factors. Hence cardiology consultation for management of this patient. CONSULT REQUESTING PHYSICIAN: Dr.John Ramírez, [facility], [place] hospitalist physician. HISTORY PRESENT ILLNESS: Patient is a 59-year-old male with known history of hypertension, COPD, obstructive sleep apnea who states since a few years is been having exertional chest pain relieved with rest. But this is recently increased. Over the last weeks he has had several episodes of exertional chest pain with radiation to the left shoulder. He describes this as dull pain with shortness of breath, and with nausea but no vomiting. There is no palpitations or diaphoresis. The patient states he was able to walk [address] for exercise in the past. But since some years he states that with this sort of activity he gets chest pain with the above-mentioned characteristics. Initially it used to occur after his file absent during the si xth. But for the last 3 weeks he has been having progressively increasing chest pressure with shorter distances. The last one was on the day of admission and the patient came to the emergency room. The elevation of the of the troponin is borderline, and his EKG shows minor nonspecific ST-T changes. The patient also has episodes of at rest heartburn which is due to GERD and was relieved with an ti-reflux medications. At present he has no chest pain or discomfort. There is no PND orthopnea. There is no shortness of breath except when he has the chest pain which is dull in nature. There is no prior history of AZ. He denies any palpitations or syncope or near syncope. Past Medical History Cardiac Medical History: Reports: Hypertension Denies: Coronary Artery Disease, Myocardial Infarction. There is no history of congestive heart failure. Pulmonary Medical History: Reports: Chronic Obstructive Pulmonary Disease (COPD) - NO CPAP; BUT WEARS O2 AT BEDTIME Denies: Asthma, Bronchitis, Pneumonia. Neurological Medical History: Denies: Seizures. There is no history of TIA or CVA. Musculoskeltal Medical History: He is disabled to his back due to degenerative arthritis which causes a lot of back pain. He has had multiple injections to his lower back in the past. Psychiatric Medical History: Denies: Depression. There is no history of anxiety. GI: Patient has a history of heartburn due to GERD. No history of peptic ulcer disease or GI bleed. ENDOCRINE HISTORY: No history of diabetes mellitus or thyroid disease GENITOURINARY: No history of chronic kidney disease. History of enlarged prostate, but symptoms controlled with Flomax. Hematology: Reports: Anemia Past Surgical History Past Surgical History: Reports: None, except he has had back injections for chronic back pain Social History Information Source: Patient, [facility] Records Lives with: Spouse/Significant other Smoking Status: Former Smoker Cigarettes Packs Per Day: 2.5 Number of Years Smokin Last Time Smoked: 2003 Frequency of Alcohol Use: None Hx Recreational Drug Use: Yes - marijuana; as teen: pcp, plastadil, cocaine Drugs: None Hx Prescription Drug Abuse: No - Advance Directive Resuscitation Status: Full Code. His is his surrogate healthcare decision maker. Family History Family History: CAD Parental Family History Reviewed: Yes Children Family History Reviewed: Yes Sibling(s) Family History Reviewed.: Yes Medication/Allergy Home Medications: Baclofen [Baclofen 10 mg Tablet] 1 tab PO ASDIR 05/26/17 Furosemide [Lasix 20 mg Tablet] 1 tab PO DAILY 05/26/17 Losartan Potassium 1 tab PO DAILY 05/26/17 Pantoprazole Sodium 1 tab PO BID 05/26/17 Tamsulosin HCl 1 tab PO BID 05/26/17 Tizanidine HCl 2 tab PO QHS 05/26/17 Tramadol HCl 1 tab PO TID 05/26/17 Fluticasone/Umeclidin/Vilanter [Trelegy 100-62.5-25 Mcg Ellipta 14 Dose/Dpi] 1 puff IH DAILY 04/21/19 Meloxicam [Mobic] 15 mg PO DAILY 04/21/19 Pregabalin [Lyrica] 150 mg PO TID 04/21/19 Allergies/Adverse Reactions:: No Known Drug Allergies Allergy (Mild, Verified 04/21/19 15:54) Review of Systems Constitutional: ABSENT: chills, fever(s), headache(s), weight gain, weight loss Eyes: ABSENT: visual disturbances Ears: ABSENT: hearing changes Cardiovascular: ABSENT: chest pain, dyspnea on exertion, edema, orthropnea, palpitations Respiratory: ABSENT: cough, hemoptysis Gastrointestinal: ABSENT: abdominal pain, constipation, diarrhea, hematemesis, hematochezia, nausea, vomiting Genitourinary: ABSENT: dysuria, hematuria Musculoskeletal: ABSENT: joint swelling Integumentary: ABSENT: rash, wounds Neurological: ABSENT: abnormal gait, abnormal speech, confusion, dizziness, focal weakness, syncope Psychiatric: ABSENT: anxiety, depression, homidical ideation, suicidal ideation Endocrine: ABSENT: cold intolerance, heat intolerance, polydipsia, polyuria Hematologic/Lymphatic: ABSENT: easy bleeding, easy bruising. PHYSICAL EXAMINATION: Patient well-built and well-nourished. In no acute dis tress. The patient is well-groomed. Selected Entries 04/22/19 15:14 Temperature 98.2 F Temperature Oral Source Pulse Rate 68 Respiratory 16 Rate Blood Pressure 120/63 Blood Pressure 82 Mean BP Location Right Arm BP Position Supine O2 Sat by Pulse 94 Oximetry Oxygen Delivery Room Air Method HEAD: Is is atraumatic normocephalic. EYES: Pupils equal round regular reactive to light accommodation. Extraocular movements are normal. There is no conjunctival pallor. There is no scleral icterus. EARS: Tympanic membranes are intact. External auditory canals are clear. NOSE: There is no deviated nasal septum. There is no inflammation nasal mucous membranes. MOUTH: Mucous membranes of mouth are moist tongue is moist there is no ulcers there is no bleeding from the gums. THROAT: There is no redness of the oropharynx there is no exudates. SKIN: There is no skin lesions or skin rashes. There is no petechia or ecchymosis. NECK: Is supple there is no JVD. Carotids are equal there is no bruit. There is no lymphadenopathy. There is no goiter. There is no accessory muscle respiration use. Trachea central. LUNGS: Show slightly diminished air entry and prolonged expiration. There is no rhonchi rales or wheezing. On percussion there is hyperresonance. On palpation there is no chest wall tenderness. HEART: S1-S2 is heard. There is no S3 gallop there is no S4 gallop the systolic murmur left sternal border and the apex there is no rub ABDOMEN: Soft. There is no hepatospleno megaly. Bowel sounds are well heard. There is no tender areas masses. EXTREMITIES: Femorals are well felt. There is no femoral bruits. Leg pulses well felt. There is no pedal edema. There is no DVT or cellulitis. There is no calf tenderness. There is no cyanosis or clubbing. MANUFACTURING DEVELOPMENT ENGINEER: The patient is conscious awake alert oriented x3 with no focal deficits. PSYCHIATRIC: The patient judgment insight are intact his affect is normal. EKG: Done yesterday shows sinus rhythm Q waves in inferior leads rule out old inferior AZ. Minor nonspecific ST-T changes. The patient is EKG from today shows sinus rhythm. Probable old inferior and AZ with posterior wall involvement. Diffuse nonspecific ST-T changes. Current Medications Generic Name Dose Route Start Last Admin Trade Name Freq PRN Reason Stop Dose Admin Aspirin 81 mg 04/22/19 10:00 04/22/19 09:15 Ecotrin 81 Mg Ec Tablet PO 05/22/19 09:59 81 mg DAILY NESTOR Administration Atorvastatin Calcium 80 mg 04/22/19 22:00 Lipitor 80 Mg Tablet PO 05/22/19 21:59 QHS NESTOR Clopidogrel Bisulfate 75 mg 04/22/19 10:00 04/22/19 09:15 Plavix 75 Mg Tablet PO 05/22/19 09:59 75 mg DAILY NESTOR Administration Enoxaparin Sodium 110 mg 04/21/19 22:45 04/22/19 09:14 Lovenox Inj 120 Mg/0.8 Ml Disp.Syrin SUBCUT 05/21/19 22:44 110 mg Q12 NESTOR Administration Fluticasone/Vilanterol 1 inh 04/22/19 10:00 04/22/19 12:32 Trelegy 100-62.5-25 Mcg Ellipta 14 Dose/Dpi IH 05/22/19 09:59 1 inhaler DAILY NESTOR Administration Furosemide 20 mg 04/22/19 10:00 04/22/19 09:15 Lasix 20 Mg Tablet PO 05/22/19 09:59 20 mg DAILY NESTOR Administration Levalbuterol HCl 1.25 mg 04/22/19 00:00 04/22/19 15:45 Xopenex Neb 1.25 Mg/3 Ml Ampul NEB 05/22/19 00:00 1.25 mg RTQ8 NESTOR Administration Levalbuterol HCl 1.25 mg 04/21/19 22:56 Xopenex Neb 1.25 Mg/3 Ml Ampul NEB 05/21/19 22:55 [id number] PRN SHORTNESS OF BREATH Losartan Potassium 50 mg 04/22/19 10:00 04/22/19 09:15 Cozaar 50 Mg Tablet PO 05/22/19 09:59 50 mg DAILY NESTOR Administration Meloxicam 15 mg 04/22/19 10:00 04/22/19 09:14 Mobic 15 Mg Tablet PO 05/22/19 09:59 15 mg DAILY NESTOR Administration Nitroglycerin 1 tab 04/21/19 22:52 Nitrostat 0.4 Mg (1/150 Gr) Tabs 25/Bottle SL Q5MP PRN FOR CHEST PAIN Pantoprazole Sodium 40 mg 04/22/19 10:00 04/22/19 09:[address] Tablet PO 05/22/19 09:59 40 mg BID NESTOR Administration Pregabalin 150 mg 04/22/19 00:15 04/22/19 14:34 Lyrica 75 Mg Capsule PO 05/22/19 00:14 150 mg TID NESTOR Administration Sodium Chloride 2.5 ml 04/22/19 06:00 04/22/19 14:34 Saline Flush 2.5 Ml Monoject Prefil Syrin IV 05/22/19 05:59 2.5 ml Q8 NESTOR Administration Tamsulosin HCl 0.4 mg 04/22/19 10:00 04/22/19 09:15 Flomax 0.4 Mg Cap.Sr PO 05/22/19 09:59 0.4 mg BID NESTOR Administration Tizanidine HCl 8 mg 04/22/19 22:00 Zanaflex 4 Mg Tablet PO 05/22/19 21:59 QHS NESTOR Tramadol HCl 50 mg 04/22/19 15:00 04/22/19 14:34 Ultram 50 Mg Tablet PO 04/29/19 09:59 50 mg TID@0900,1500,2200 NESTOR Administration Discontinued Medications Generic Name Dose Route Start Last Admin Trade Name Freq PRN Reason Stop Dose Admin Aspirin 324 mg 04/21/19 17:41 04/21/19 18:40 Aspirin 81 Mg Chewable Tablet PO 04/21/19 17:42 324 mg NOW ONE Administration Atorvastatin Calcium 80 mg 04/21/19 22:35 04/21/19 23:23 Lipitor 80 Mg Tablet PO 04/21/19 22:36 80 mg NOW ONE Administration Baclofen 10 mg 04/22/19 10:00 Baclofen 10 Mg Tablet PO 05/22/19 09:59 TID [facility] Clopidogrel Bisulfate 300 mg 04/21/19 22:35 04/21/19 23:23 Plavix 300 Mg Tablet PO 04/21/19 22:36 300 mg NOW ONE Administration Finasteride 5 mg 04/22/19 10:00 Proscar 5 Mg Tablet PO 05/22/19 09:59 DAILY [facility] Gabapentin 300 mg 04/22/19 08:00 Neurontin 300 Mg Capsule PO 05/22/19 07:59 6XD [facility] Lamotrigine 25 mg 04/22/19 10:00 Lamictal 25 Mg Chewable Tab PO 05/22/19 09:59 BID [facility] Tramadol HCl 50 mg 04/22/19 10:00 04/22/19 09:15 Ultram 50 Mg Tablet PO 04/29/19 09:59 50 mg TID [facility] Administration HOME MEDICATIONS Labs- All tests 24 hr 04/21/19 04/21/19 04/21/19 17:58 17:58 17:58 WBC 14.0 H RBC 5.04 Hgb 11.7 L Hct 37.6 L MCV 75 L MCH 23.2 L MCHC 31.1 L RDW 16.9 H Plt Count 218 Seg Neutrophils % 80.8 H Lymphocytes % 11.7 L Monocytes % 7.0 Eosinophils % 0.3 Basophils % 0.2 Absolute Neutrophils 11.3 H Absolute Lymphocytes 1.6 Absolute Monocytes 1.0 Absolute Eosinophils 0.0 Absolute Basophils 0.0 PT INR APTT Sodium 140.7 Potassium 4.2 Chloride 102 Carbon Dioxide 27 Anion Gap 12 BUN 17 Creatinine 1.20 Est GFR ( Amer) > 60 Est GFR (Non-Af Amer) > 60 Glucose 133 H Calcium 9.1 Total Bilirubin 0.8 Direct Bilirubin 0.3 Neonat Total Bilirubin Not Reportable Neonat Direct Bilirubin Not Reportable Neonat Indirect Bili Not Reportable AST 21 ALT 30 Alkaline Phosphatase 54 Creatine Kinase 129 CK-MB (CK-2) 1.91 Troponin I 0.091 Total Protein 6.7 Albumin 4.0 Urine Color Urine Appearance Urine pH Ur Specific Cameron Urine Protein Urine Glucose (UA) Urine Ketones Urine Blood Urine Nitrite Urine Bilirubin Urine Urobilinogen Ur Leukocyte Esterase Urine WBC (Auto) Urine RBC (Auto) Urine Mucus (Auto) Urine Ascorbic Acid Stool Occult Blood 04/21/19 04/21/19 04/21/19 20:05 20:05 20:05 WBC RBC Hgb Hct MCV MCH MCHC RDW Plt Count Seg Neutrophils % Lymphocytes % Monocytes % Eosinophils % Basophils % Absolute Neutrophils Absolute Lymphocytes Absolute Monocytes Absolute Eosinophils Absolute Basophils PT INR APTT Sodium Potassium Chloride Carbon Dioxide Anion Gap BUN Creatinine Est GFR ( Amer) Est GFR (Non-Af Amer) Glucose Calcium Total Bilirubin Direct Bilirubin Neonat Total Bilirubin Neonat Direct Bilirubin Neonat Indirect Bili AST ALT Alkaline Phosphatase Creatine Kinase 99 CK-MB (CK-2) 1.78 Troponin I 0.113 Total Protein Albumin Urine Color Urine Appearance Urine pH Ur Specific Cameron Urine Protein Urine Glucose (UA) Urine Ketones Urine Blood Urine Nitrite Urine Bilirubin Urine Urobilinogen Ur Leukocyte Esterase Urine WBC (Auto) Urine RBC (Auto) Urine Mucus (Auto) Urine Ascorbic Acid Stool Occult Blood 04/21/19 04/22/19 04/22/19 22:55 02:12 07:56 WBC 10.3 RBC 4.68 Hgb 11.2 L Hct 34.6 L MCV 74 L MCH 23.9 L MCHC 32.3 RDW 17.2 H Plt Count 210 Seg Neutrophils % Lymphocytes % Monocytes % Eosinophils % Basophils % Absolute Neutrophils Absolute Lymphocytes Absolute Monocytes Absolute Eosinophils Absolute Basophils PT 13.9 INR 1.02 APTT 38.9 H Sodium Potassium Chloride Carbon Dioxide Anion Gap BUN Creatinine Est GFR ( Amer) Est GFR (Non-Af Amer) Glucose Calcium Total Bilirubin Direct Bilirubin Neonat Total Bilirubin Neonat Direct Bilirubin Neonat Indirect Bili AST ALT Alkaline Phosphatase Creatine Kinase CK-MB (CK-2) Troponin I 0.092 Total Protein Albumin Urine Color Urine Appearance Urine pH Ur Specific Cameron Urine Protein Urine Glucose (UA) Urine Ketones Urine Blood Urine Nitrite Urine Bilirubin Urine Urobilinogen Ur Leukocyte Esterase Urine WBC (Auto) Urine RBC (Auto) Urine Mucus (Auto) Urine Ascorbic Acid Stool Occult Blood 04/22/19 04/22/19 04/22/19 07:56 10:35 12:25 WBC RBC Hgb Hct MCV MCH MCHC RDW Plt Count Seg Neutrophils % Lymphocytes % Monocytes % Eosinophils % Basophils % Absolute Neutrophils Absolute Lymphocytes Absolute Monocytes Absolute Eosinophils Absolute Basophils PT INR APTT Sodium Potassium Chloride Carbon Dioxide Anion Gap BUN Creatinine Est GFR ( Amer) Est GFR (Non-Af Amer) Glucose Calcium Total Bilirubin Direct Bilirubin Neonat Total Bilirubin Neonat Direct Bilirubin Neonat Indirect Bili AST ALT Alkaline Phosphatase Creatine Kinase CK-MB (CK-2) Troponin I 0.097 Total Protein Albumin Urine Color YELLOW Urine Appearance CLEAR Urine pH 7.0 Ur Specific Cameron 1.008 Urine Protein NEGATIVE Urine Glucose (UA) >=500 H Urine Ketones NEGATIVE Urine Blood NEGATIVE Urine Nitrite NEGATIVE Urine Bilirubin NEGATIVE Urine Urobilinogen NEGATIVE Ur Leukocyte Esterase NEGATIVE Urine WBC (Auto) 0 Urine RBC (Auto) 0 Urine Mucus (Auto) RARE Urine Ascorbic Acid NEGATIVE Stool Occult Blood NEGATIVE 04/22/19 14:05 WBC RBC Hgb Hct MCV MCH MCHC RDW Plt Count Seg Neutrophils % Lymphocytes % Monocytes % Eosinophils % Basophils % Absolute Neutrophils Absolute Lymphocytes Absolute Monocytes Absolute Eosinophils Absolute Basophils PT INR APTT Sodium Potassium Chloride Carbon Dioxide Anion Gap BUN Creatinine Est GFR ( Amer) Est GFR (Non-Af Amer) Glucose Calcium Total Bilirubin Direct Bilirubin Neonat Total Bilirubin Neonat Direct Bilirubin Neonat Indirect Bili AST ALT Alkaline Phosphatase Creatine Kinase CK-MB (CK-2) Troponin I 0.078 Total Protein Albumin Urine Color Urine Appearance Urine pH Ur Specific Cameron Urine Protein Urine Glucose (UA) Urine Ketones Urine Blood Urine Nitrite Urine Bilirubin Urine Urobilinogen Ur Leukocyte Esterase Urine WBC (Auto) Urine RBC (Auto) Urine Mucus (Auto) Urine Ascorbic Acid Stool Occult Blood . HOME MEDICATION Baclofen [Baclofen 10 mg Tablet] 20 mg PO DAILY 05/26/17 Furosemide [Lasix 20 mg Tablet] 20 mg PO DAILY 05/26/17 Losartan Potassium 50 mg PO DAILY 05/26/17 Pantoprazole Sodium 40 mg PO BID 05/26/17 Tamsulosin HCl 2 cap PO DAILY 05/26/17 Tizanidine HCl 8 mg PO QHS 05/26/17 Tramadol HCl 50 mg PO TID 05/26/17 Fluticasone/Umeclidin/Vilanter [Trelegy 100-62.5-25 Mcg Ellipta 14 Dose/Dpi] 1 puff IH DAILY 04/21/19 Meloxicam [Mobic] 15 mg PO DAILY 04/21/19 Pregabalin [Lyrica] 150 mg PO TID 04/21/19 Chest X-Ray 04/21/19 17:41 IMPRESSION: Somewhat nodular and bandlike opacity of the right upper lobe. There is no acute focal airspace opacity. Recommend nonemergent CT to further evaluate opacity. IMPRESSION/RECOMMENDATION. 1. Unstable angina patient with a history of exertional angina: The patient's EKG shows borderline ST T changes, and borderline troponin elevation. But in view of the patient's risk factors namely age, hypertension, and family history of premature coronary artery disease would recommend that the patient directly go to cardiac catheterization. The risk benefits and alternative options of cardiac catheterization were discussed with the patient. The complications of cardiac catheterization including stroke AZ renal failure, dye-induced allergy. Vascular trauma, infection, department of arrhythmia, sometimes needing CPR for the arrhythmia, or electrical cardioversion for unstable arrhythmias were all discussed with the patient. Also the procedure of conscious sedation and its and its benefits and risks including respiratory arrest requiring intubation, allergic reaction, and terms of aspiration pneu monia of all been discussed in detail with the patient. This as opposed to the stress test which was also discussed with the patient. Of the 2 joints is given to the patient the patient who wants to undergo cardiac catheterization. Hence we will set the patient up for cardiac catheterization. The patient will be shown the cardiac catheterization teaching video. Discussed with patient patient nurse. The patient is also aware that if the lesion is found that needs revascularization then he would be transferred to [facility] for further management of his coronary artery disease for revascularization options. 2. Hypertension well controlled . 3. COPD: Stable with no evidence of acute exacerbation. 4. GERD: Continue proton pump inhibitors. 5. Sleep apnea: Patient not on CPAP but uses oxygen at night. 6.:? Lipid status. We will check the patient's lipid levels in the morning. 7. History of chronic back pain. Medications reviewed management plan discussed with attending physician on the case. Cardiac catheterization procedure was discussed with the patient in detail and also with the patient's . We will set the patient up for cardiac catheterization in the morning. Consent for this was obtained. The patient is aware that Dr. Moreau will be doing the cardiac catheterization. Medical decision making is of high complexity. 60 minutes spent on this patient with more than 50% of time spent in direct patient care.
[2019-04-22] MEDS: ATORVASTATIN CALCIUM 80 MG TABLET PO SCH (21:26)
[2019-04-22] MEDS: TIZANIDINE HCL 4 MG TABLET PO SCH (21:27)
[2019-04-23] MEDS: LEVALBUTEROL HCL NEB 1.25 MG/3 ML AMPUL NEB SCH ×3 (00:44→15:41)
[2019-04-23] MEDS ORDERED: DEXTROSE 5%-1/2 NORMAL SALINE 1,000 ML IV PRN (01:40)
[2019-04-23] MEDS ORDERED: DIPHENHYDRAMINE HCL 25 MG CAPSULE PO PRN (01:41)
[2019-04-23] MEDS ORDERED: DIAZEPAM 5 MG TABLET PO PRN (01:41)
[2019-04-23] MEDS ORDERED: RADIAL COCKTAIL SYRINGE 10 ML IV PRN ×4 (05:00)
[2019-04-23 05:58] LABS: CHOLESTEROL 147.47 mg/dL (0-200); TRIGLYCERIDES 167 mg/dL (<150)
[2019-04-23 06:08] LABS: DIRECT LDL 101 mg/dL (<100)
[2019-04-23 06:13] LABS: VLDL CHOLESTEROL 33.4 mg/dL (10-31)
[2019-04-23 07:48] LABS: ANION GAP 10 (5-19); BLOOD UREA NITROGEN 12 mg/dL (7-20); CARBON DIOXIDE 28 mmol/L (22-30); CHLORIDE 104 mmol/L (98-107); GLUCOSE 133 mg/dL (75-110); POTASSIUM 4.5 mmol/L (3.6-5.0); SODIUM 142.3 mmol/L (137-145)
[2019-04-23] MEDS: TRAMADOL HCL 50 MG TABLET PO SCH ×3 (10:08→21:48)
[2019-04-23] MEDS: LOSARTAN POTASSIUM 50 MG TABLET PO SCH (10:08)
[2019-04-23] MEDS: TAMSULOSIN HCL 0.4 MG CAP.SR.24H PO SCH ×2 (10:09→18:01)
[2019-04-23] MEDS: FUROSEMIDE 20 MG TABLET PO SCH (10:09)
[2019-04-23] MEDS: MELOXICAM 15 MG TABLET PO SCH (10:09)
[2019-04-23] MEDS: FLUTICASONE/UMECLIDIN/VILANTER 100-62.5-25 MCG/DOSE IH SCH (10:09)
[2019-04-23] MEDS: PANTOPRAZOLE SODIUM 40 MG TABLET.DR PO SCH ×2 (10:09→18:01)
[2019-04-23] MEDS: CLOPIDOGREL BISULFATE 75 MG TABLET PO SCH (10:09)
[2019-04-23] MEDS: ASPIRIN 81 MG TABLET, ENT COATED PO SCH (10:09)
[2019-04-23] MEDS: PREGABALIN 75 MG CAPSULE PO SCH ×3 (10:09→18:01)
[2019-04-23] MEDS ORDERED: HEPARIN SOD (PORCINE) 1,000 UNIT/ML 10 ML VIAL ONE (13:05)
[2019-04-23] MEDS ORDERED: FENTANYL CITRATE INJ/PF 100 MCG/2 ML AMPUL ONE (13:05)
[2019-04-23] MEDS ORDERED: HEPARIN SODIUM,PORCINE/NS/PF 2,000 UNIT/1,000 ML RTUINJ IV ONE (13:05)
[2019-04-23] MEDS ORDERED: MIDAZOLAM 2 MG/2 ML INJ ONE (13:05)
[2019-04-23] MEDS ORDERED: LIDOCAINE 1% INJ-PF (10 MG/ML) 30 ML SDV ONE (13:05)
[2019-04-23] MEDS ORDERED: BIVALIRUDIN INJ 250 MG VIAL IV ONE ×2 (14:04→14:36)
[2019-04-23] MEDS ORDERED: TICAGRELOR 90 MG TABLET ONE (14:58)
--- NOTE | 2019-04-23 15:11 | Operative Report ---
Operative Report DATE OF SURGERY: 04/23/19 PREOPERATIVE DIAGNOSIS: Acute coronary syndrome POSTOPERATIVE DIAGNOSIS: Multivessel coronary artery disease OPERATION: Left heart catheterization coronary angiography left ventriculography, drug-eluting stent implantation in the mid LAD, drug-eluting stent implantation in the proximal and mid RCA ANESTHESIA: Moderate Sedation COMPLICATIONS: None PROCEDURE: After informed consent was obtained the patient was brought to the cardiac catheterization lab and the right wrist was prepared in usual sterile and draped manner. Hemodynamic access was gained using micropuncture technique and the patient was anticoagulated with heparin. An intra-arterial cocktail of verapamil and lidocaine was administered. Selective coronary angiography was performed with a Rea catheter. This was exchanged with pigtail catheter and left ventriculography was performed in standard ROBLEDO projection. The patient left the Cardiac Catheterization Lab in stable condition, with intact distal pulses and no chest pain or other complications from the procedure. Conscious sedation was initiated, monitored, and maintained during the procedure with the start time of [1352] and a completion time of 1450 for a total procedure time of 62 minutes. A total of 1 milligrams of Versed and 75 milligrams and fentanyl were used for conscious sedation. HEMODYNAMIC DATA: [] Aortic pressure to beginning the case is 116/73 post ventriculography LV pressure is 124/20 7 aortic pressure on pullback is 123/71 there is no gradient across the aortic valve mild anterolateral hypokinesis globally preserved left ventricular function visually ejection fraction appears to be in the 60 to 65% by area length method appears to be slightly overestimated and is calculated at 80%. There is no mitral regurgitation the ascending aortic root appears normal in size ANGIOGRAPHY: [] VENTRICULOGRAPHY: Ventriculography is performed in the ROBLEDO projection and demonstrates [] . CORONARY ANGIOGRAPHY: [] LEFT MAIN: [Left main is normal] LEFT ANTERIOR DESCENDING: Left anterior descending is a large vessel proximally which gives rise to 2 diagonals the second diagonal has a 30% stenosis in its origin. The mid LAD has a disrupted 95% stenosis at a small subtotally occluded septal floatman the LAD itself reaches the apex and appears somewhat underfilled and small caliber with JIMENA II grade flow at the apex CIRCUMFLEX CORONARY: The circumflex gives rise to a large marginal vessel which has insignificant luminal irregularities RIGHT CORONARY ARTERY: The right coronary artery is a large dominant vessel supplying the PDA and posterolateral branches the proximal portion of the RCA has a 75 to 80% stenosis the mid RCA has an 80 to 90% focal stenosis between the first and second marginal branches Coronary intervention: The patient received Angiomax and an EBU 375 was advanced into the left main and a 014 intuition guidewire was across the LAD stenosis and primary stent implantation was performed with a 2 seven 5 x 12 mm kasey drug- eluting stent this was then postdilated to 3.0 mm resulting in a 0% residual and excellent angiographic result and no side branch loss or distal embolization and sabianist of JIMENA grade III flow to the apex Attention was then turned towards the right coronary artery a JR4 was advanced into the RCA in the same intuition wire was advanced across the stenosis in the proximal and midportion of the RCA a 3 oh by 12 Ida drug-eluting stent was deployed and postdilated to 3.75 mm in the midportion and a second 3.5 x 18 mm drug-eluting stent was then deployed in the proximal this was postdilated to 3.8 mm the guidewire was withdrawn angiography was performed in multiple orthogonal projections demonstrating good stent apposition no side branch loss dissection or distal embolization is seen IMPRESSION: 1. Preserved left ventricular systolic function 2. No evidence of significant valvular heart disease 3. High-grade stenosis in the LAD and RCA 4. Successful drug-eluting stent implantation with a 3.0 mm drug-eluting stent 5. Drug-eluting stent implantation in the proximal and mid RCA with post dilatation diameters of 3.75 and 3.80 Recommendations: Dual antiplatelet therapy for a minimum of 1 year Maximal risk factor modification High-dose lipid-lowering therapy CC Dr. Estelita Dia
--- NOTE | 2019-04-23 16:26 | PDOC PROGRESS REPORT ---
Subjective Progress Note for:: 04/23/19 Subjective:: No adverse events overnight. No new complaints. Currently denies any chest pain. He is n.p.o. awaiting his cardiac catheterization. Reason For Visit: NSTEMI COPD Physical Exam Vital Signs: Temp Pulse Resp BP Pulse Ox 99.0 F 64 16 137/72 H 99 04/23/19 16:21 04/23/19 16:21 04/23/19 16:21 04/23/19 16:21 04/23/19 16:21 Intake & Output 04/22/19 04/23/19 04/24/19 06:59 06:59 06:59 Intake Total 985 594 Output Total 1400 Balance -415 594 Weight 107.8 kg 107.2 kg General appearance: PRESENT: no acute distress, cooperative, disheveled Respiratory exam: PRESENT: clear to auscultation marjan, symmetrical, unlabored. ABSENT: accessory muscle use, chest wall tenderness, crackles, prolonged expiratory phas, rhonchi, tachypnea, wheezes Cardiovascular exam: PRESENT: RRR, +S1, +S2 Pulses: PRESENT: normal carotid pulses Vascular exam: PRESENT: normal capillary refill GI/Abdominal exam: PRESENT: normal bowel sounds, soft. ABSENT: distended, guarding, rebound, tenderness Extremities exam: ABSENT: clubbing, pedal edema Musculoskeletal exam: PRESENT: normal inspection. ABSENT: deformity Neurological exam: PRESENT: alert, awake, oriented to person, oriented to place, oriented to time, oriented to situation Psychiatric exam: PRESENT: appropriate affect, normal mood Skin exam: PRESENT: dry, warm Results Laboratory Results: 04/22/19 07:56 04/23/19 05:05 04/23/19 04/23/19 05:05 05:05 Sodium 142.3 Potassium 4.5 Chloride 104 Carbon Dioxide 28 Anion Gap 10 BUN 12 Creatinine 1.17 Est GFR ( Amer) > 60 Est GFR (Non-Af Amer) > 60 Glucose 133 H Calcium 9.0 Triglycerides 167 H Cholesterol 147.47 LDL Cholesterol Direct 101 H VLDL Cholesterol 33.4 H HDL Cholesterol 32 L 04/21/19 04/21/19 04/21/19 17:58 17:58 20:05 Creatine Kinase 129 CK-MB (CK-2) 1.91 Troponin I 0.091 0.113 04/21/19 04/21/19 04/22/19 20:05 20:05 02:12 Creatine Kinase 99 CK-MB (CK-2) 1.78 Troponin I 0.092 04/22/19 04/22/19 07:56 14:05 Creatine Kinase CK-MB (CK-2) Troponin I 0.097 0.078 Impressions: Chest X-Ray 04/21/19 17:41 IMPRESSION: Somewhat nodular and bandlike opacity of the right upper lobe. There is no acute focal airspace opacity. Recommend nonemergent CT to further evaluate opacity. Assessment and Plan - Diagnosis (1) Exertional chest pain Is this a current diagnosis for this admission?: Yes Plan: Elevated troponins, now pain-free. Awaiting cardiac catheterization. We will follow-up cardiology recommendations following the test. - Time Time Spent with patient: 15-24 minutes
[2019-04-23] MEDS ORDERED: TICAGRELOR 90 MG TABLET PO SCH (18:00)
[2019-04-23] MEDS ORDERED: MORPHINE SULFATE 10 MG/ML INJ IV ONE (18:00)
--- NOTE | 2019-04-23 18:36 | EKG REPORT ---
SEVERITY:- NORMAL ECG - SINUS RHYTHM : Confirmed by: Denise Capone MD 23-Apr-2019 18:36:07
--- NOTE | 2019-04-23 18:37 | EKG REPORT ---
SEVERITY:- NORMAL ECG - SINUS RHYTHM : Confirmed by: Denise Capone MD 23-Apr-2019 18:36:10
[2019-04-23] MEDS: TICAGRELOR 90 MG TABLET PO SCH (21:45)
[2019-04-23] MEDS: TIZANIDINE HCL 4 MG TABLET PO SCH (21:45)
[2019-04-23] MEDS: ATORVASTATIN CALCIUM 80 MG TABLET PO SCH (21:45)
--- NOTE | 2019-04-23 23:38 | Progress Note ---
Provider Note Provider Note: CARDIOLOGY PROGRESS NOTE by Dr. Denise Capone on 04/23/2019.
[2019-04-24] MEDS: LEVALBUTEROL HCL NEB 1.25 MG/3 ML AMPUL NEB SCH ×2 (00:53→08:11)
[2019-04-24 05:54] LABS: HEMATOCRIT 33.1 % (37.9-51.0); HEMOGLOBIN 10.8 g/dL (13.5-17.0); MEAN CORPUSCULAR HEMOGLOBIN 23.9 pg (27.0-33.4); MEAN CORPUSCULAR HGB CONC 32.6 g/dL (32.0-36.0); MEAN CORPUSCULAR VOLUME 73 fl (80-97); PLATELET COUNT 189 10^3/uL (150-450); RED BLOOD COUNT 4.52 10^6/uL (4.35-5.55); RED CELL DISTRIBUTION WIDTH 16.7 % (11.5-14.0); WHITE BLOOD COUNT 5.2 10^3/uL (4.0-10.5)
[2019-04-24] MEDS: FUROSEMIDE 20 MG TABLET PO SCH (09:41)
[2019-04-24] MEDS: TRAMADOL HCL 50 MG TABLET PO SCH (09:42)
[2019-04-24] MEDS: TAMSULOSIN HCL 0.4 MG CAP.SR.24H PO SCH (09:42)
[2019-04-24] MEDS: PANTOPRAZOLE SODIUM 40 MG TABLET.DR PO SCH (09:42)
[2019-04-24] MEDS: PREGABALIN 75 MG CAPSULE PO SCH (09:43)
[2019-04-24] MEDS: TICAGRELOR 90 MG TABLET PO SCH (09:43)
[2019-04-24] MEDS: FLUTICASONE/UMECLIDIN/VILANTER 100-62.5-25 MCG/DOSE IH SCH (09:43)
[2019-04-24] MEDS: MELOXICAM 15 MG TABLET PO SCH (09:43)
[2019-04-24] MEDS: LOSARTAN POTASSIUM 50 MG TABLET PO SCH (09:43)
[2019-04-24] MEDS ORDERED: ASPIRIN 81 MG TABLET, ENT COATED PO SCH (10:00)
[2019-04-24] MEDS ORDERED: AMLODIPINE BESYLATE 2.5 MG TABLET PO SCH (10:00)
[2019-04-24 11:54] VITALS: BP 121/74
--- NOTE | 2019-04-24 17:53 | PDOC DISCHARGE SUMMARY ---
General - Admit/Disc Date/PCP Admission Date/Primary Care Provider: 04/21/19 22:52 RASHEL COLINDRES MD Discharge Date: 04/24/19 - Discharge Diagnosis (1) Exertional chest pain Is this a current diagnosis for this admission?: Yes Summary: He had a heart catheterization turned out to have coronary artery disease and got 3 stents. He will do dual antiplatelet therapy for a year along with high- dose statin. Cardiology follow-up as an outpatient. - Additional Information Resuscitation Status: Full Code Discharge Diet: Cardiac Discharge Activity: Slowly Increase Activity Prescriptions: Amlodipine Besylate [Norvasc 2.5 mg Tablet] 2.5 mg PO DAILY #30 tablet Atorvastatin Calcium [Lipitor 20 mg Tablet] 20 mg PO QHS #30 tablet Nitroglycerin [Nitrostat 0.4 mg (1/150 Gr) Tabs 25/Bottle] 1 tab SL Q5MP PRN #30 bottle PRN Reason: Ticagrelor [Brilinta 90 mg Tablet] 90 mg PO Q12 #60 tablet Home Medications: Baclofen [Baclofen 10 mg Tablet] 20 mg PO DAILY 05/26/17 Furosemide [Lasix 20 mg Tablet] 20 mg PO DAILY 05/26/17 Losartan Potassium 50 mg PO DAILY 05/26/17 Pantoprazole Sodium 40 mg PO BID 05/26/17 Tamsulosin HCl 2 cap PO DAILY 05/26/17 Tizanidine HCl 8 mg PO QHS 05/26/17 Tramadol HCl 50 mg PO TID 05/26/17 Fluticasone/Umeclidin/Vilanter [Trelegy 100-62.5-25 Mcg Ellipta 14 Dose/Dpi] 1 puff IH DAILY 04/21/19 Meloxicam [Mobic] 15 mg PO DAILY 04/21/19 Pregabalin [Lyrica] 150 mg PO TID 04/21/19 Amlodipine Besylate [Norvasc 2.5 mg Tablet] 2.5 mg PO DAILY #30 tablet 04/24/19 Aspirin [Ecotrin 81 mg EC Tablet] 81 mg PO DAILY tabec 04/24/19 Atorvastatin Calcium [Lipitor 20 mg Tablet] 20 mg PO QHS #30 tablet 04/24/19 Nitroglycerin [Nitrostat 0.4 mg (1/150 Gr) Tabs 25/Bottle] 1 tab SL Q5MP PRN #30 bottle 04/24/19 Ticagrelor [Brilinta 90 mg Tablet] 90 mg PO Q12 #60 tablet 04/24/19 History of Present Illness History of Present Illness: TRAY WILLIS is a 59 year old male with a past medical history of COPD, sleep apnea, epistasis and hypertension. Patient presents with several weeks of excessive shortness of breath with exertion with acute worsening at today in as sociation with walking for exercise. He describes his pain is dull and radiating to the left shoulder retrosternal associate with nausea without vomiting, diaphoresis, no palpitations prompting evaluation in the emergency room after approximately 35 minutes of pain that was somewhat relieved by rest. He admits several episodes of the last 3 weeks but short-lived he also had an episode of severe acid reflux which interfered with sleep. He denies any medications and is otherwise been well. In the emergency department he is found to have an abnormal EKG with lateral lead ST upsloping and a troponin of 0.09 followed by 0.1 after 3 hours. However he is pain-free and referred to the hospitalist for admission. Hospital Course Hospital Course: He had a cardiac catheterization had one stent in the LAD and 2 stents in the RCA. He will be on dual antiplatelet therapy for a year and then on aspirin once a day afterwards. He will be on statin therapy. He was started on some amlodipine for his blood pressure along with his Cozaar. His labs and exa mination were reassuring he was discharged in good condition. Physical Exam Vital Signs: Temp Pulse Resp BP Pulse Ox 97.9 F 72 16 121/74 98 04/24/19 11:52 04/24/19 11:52 04/24/19 11:52 04/24/19 11:52 04/24/19 11:52 Intake & Output 04/23/19 04/24/19 04/25/19 06:59 06:59 06:59 Intake Total 985 834 Output Total 1400 400 Balance -415 434 Weight 107.2 kg 107 kg General appearance: PRESENT: no acute distress, cooperative, disheveled Respiratory exam: PRESENT: clear to auscultation marjan, symmetrical, unlabored. ABSENT: accessory muscle use, chest wall tenderness, crackles, prolonged expiratory phas, rhonchi, tachypnea, wheezes Cardiovascular exam: PRESENT: RRR, +S1, +S2 Pulses: PRESENT: normal carotid pulses Vascular exam: PRESENT: normal capillary refill GI/Abdominal exam: PRESENT: normal bowel sounds, soft. ABSENT: distended, gua rding, rebound, tenderness Extremities exam: ABSENT: clubbing, pedal edema Musculoskeletal exam: PRESENT: normal inspection. ABSENT: deformity Neurological exam: PRESENT: alert, awake, oriented to person, oriented to place, oriented to time, oriented to situation Psychiatric exam: PRESENT: appropriate affect, normal mood Skin exam: PRESENT: dry, warm Results Laboratory Results: 04/24/19 04:59 04/24/19 04:59 04/24/19 04/24/19 04:59 04:59 WBC 5.2 RBC 4.52 Hgb 10.8 L Hct 33.1 L MCV 73 L MCH 23.9 L MCHC 32.6 RDW 16.7 H Plt Count 189 Creatinine 1.05 Est GFR ( Amer) > 60 Est GFR (Non-Af Amer) > 60 04/21/19 04/21/19 04/21/19 17:58 17:58 20:05 Creatine Kinase 129 CK-MB (CK-2) 1.91 Troponin I 0.091 0.113 04/21/19 04/21/19 04/22/19 20:05 20:05 02:12 Creatine Kinase 99 CK-MB (CK-2) 1.78 Troponin I 0.092 04/22/19 04/22/19 07:56 14:05 Creatine Kinase CK-MB (CK-2) Troponin I 0.097 0.078 Impressions: Chest X-Ray 04/21/19 17:41 IMPRESSION: Somewhat nodular and bandlike opacity of the right upper lobe. There is no acute focal airspace opacity. Recommend nonemergent CT to further evaluate opacity. Qualifiers - * PATIENT BEING DISCHARGED WITH ANY OF THE FOLLOWING DIAGNOSIS: No Acute Heart Failure Is this a Heart Failure Patient?: No Plan Time Spent: Greater than 30 Minutes
[2019-04-24] MEDS ORDERED: ATORVASTATIN CALCIUM 20 MG TABLET PO SCH (22:00)
[2019-04-24] MEDS ORDERED: ATORVASTATIN CALCIUM 80 MG TABLET PO SCH (22:00)
--- NOTE | 2019-04-24 22:13 | EKG REPORT ---
SEVERITY:- ABNORMAL ECG - SINUS RHYTHM NONSPECIFIC T ABNORMALITIES, ANT-LAT LEADS : Confirmed by: Denise Capone MD 24-Apr-2019 22:12:10
== END 2019-04-24 12:19 | disposition home or self-care (01) ==
LOC: ER 15:54 → EH 22:52 → 3S 04-22 02:12
PROVIDERS: ADMIT Internal Medicine; ATTEND Internal Medicine
PROC: 4A023N7 Measurement of Cardiac Sampling and Pressure, Left Heart, Percutaneous Approach (ICD-10-PCS; principal; 2019-04-23)
PROC: B2101ZZ Fluoroscopy of Single Coronary Artery using Low Osmolar Contrast (ICD-10-PCS; 2019-04-23)
PROC: B2151ZZ Fluoroscopy of Left Heart using Low Osmolar Contrast (ICD-10-PCS; 2019-04-23)
PROC: 027136Z Dilation of Coronary Artery, Two Arteries with Three Drug-eluting Intraluminal Devices, Percutaneous Approach (ICD-10-PCS; 2019-04-23)
DX: R07.89 Other chest pain (principal); I25.10 Atherosclerotic heart disease of native coronary artery without angina pectoris; I10 Essential (primary) hypertension; R06.02 Shortness of breath; R11.0 Nausea; R94.31 Abnormal electrocardiogram [ECG] [EKG]; K21.9 Gastro-esophageal reflux disease without esophagitis; J44.9 Chronic obstructive pulmonary disease, unspecified; G47.33 Obstructive sleep apnea (adult) (pediatric); R79.89 Other specified abnormal findings of blood chemistry; M47.9 Spondylosis, unspecified; Z79.899 Other long term (current) drug therapy; Z95.5 Presence of coronary angioplasty implant and graft; Z99.81 Dependence on supplemental oxygen; Z87.891 Personal history of nicotine dependence; Z82.49 Family history of ischemic heart disease and other diseases of the circulatory system
CPT/HCPCS: 93005 ×4; 99285; 96372; 36415 ×4; 82553; 82550; 82565; 85025; 85027 ×2; 85610; 85730; 82272; 80048; 80053; 81001; 84484 ×2; 80061; 93458; 92928; 71045; 93010 ×4; 94660 ×2; 94640 ×4; G0378 ×4; C1887 ×2; C1874 ×3; J3490 ×31; J2250; J3010; J1644 ×2; J1650 ×2; J2270; J0583